=== PATIENT | male | born 1955 | race Caucasian/White ===

== ENCOUNTER 2025-01-18 19:45 | Emergency (ER) | payer MEDICARE, SELFPAY ==
--- NOTE | 2025-01-18 19:48 | ED_ITS ---
<Statement entered by Alisia Mcintyre DO - 01/18/25 23:38> I was consulted by the DE, and we discussed the complexity of the problems being addressed. I approved the treatment and management plan for this patient's care in the emergency department, thus performing a substantive portion of the medical decision making. Alisia Mcintyre DO Discharge Plan Disposition Chief Complaint: Extremity Injury, Upper Prescriptions Prescriptions: No Action hydroxyzine pamoate [Vistaril] 25 mg capsule 25 mg PO TID-QID PRN (Reason: anxiety) Qty: 90 0RF Referrals Follow up/Referrals: Bee Baum APRN [Primary Care Provider] - See instructions Activity Restrictions/Add. Instructions Additional Instructions/Restrictions: I have referred you to orthopedics. Continue taking Tylenol alternating with Motrin for symptoms along with ice compression elevation. Please wear your wrist splint. If you have continued worsening signs or symptoms follow-up with your PCP or return to the ER as needed. Clinical Impressions Clinical Impression: Injury of wrist, right Print Language Print Language: Belarusian Discharge ED Provider: Alisia Mcintyre General Adult HPI General Chief complaint: Extremity Injury, Upper Stated complaint: AO03/18@1920 RT wrist inj Time Seen by Provider: 01/18/25 19:48 History of Present Illness HPI narrative: Patient presents for evaluation of right wrist injury. Patient states he was attempting go to the bathroom and tripped on a rug slipping and falling. He did not go all the way to the ground was able to stop himself with his right arm outstretched. However he felt sharp pain in his right wrist. He came to immediately the emergency department for evaluation. He reports painful range of motion but is neurovascular intact distally. He has no numbness no tingling. Related Data Previous Rx's ?Medication ?Instructions ?Recorded hydroxyzine pamoate 25 mg capsule 25 mg PO TID-QID PRN anxiety #90 04/13/18 (Vistaril) caps Allergies Allergy/AdvReac Type Severity Reaction Status Date / Time prednisone (PREDNISONE) Allergy Unknown I-HIVES Verified 04/13/18 10:23 tramadol (TRAMADOL) Allergy Unknown NA-NAUSEA/V Verified 04/13/18 10:23 OMITING PFSH PFSH Disclaimer: The information contained in this section may have been updated after the patient was seen, as this information can be updated by other users. Medical History (Updated 01/18/25 @ 21:44 by JAMIL Ruth) Anxiety Social History Smoking Status: Current every day smoker tobacco type: cigarettes packs per day: 1 alcohol intake: never substance use type: denies use current occupational status: retired Travel in the last 8 weeks: None Other Medical History Have you received the Flu Vaccine for this season: No ROS Obtained: Yes Systems reviewed as appropriate & no additional complaints except as documented Physical Exam General General appearance: alert and in no apparent distress Respiratory Respiratory exam: Present normal lung sounds bilaterally Cardiovascular Cardiovascular exam: Present regular rate Neurological Exam Neurological exam: Present alert and oriented X3 Medical Decision Making Medical Records Screening: Per USPSTF and CDC recommendations, given the prevalence of disease in our region, it is our hospital?s policy to screen for HIV and viral Hepatitis for all patients aged 18 and over and those with ongoing risk factors. Matt Inquiry Pt receiving controlled substance: No Vital Signs: 01/18/25 19:54 Temperature 97.9 F Temperature Source Oral Pulse Rate [Right Radial] 95 H Respiratory Rate 20 Blood Pressure [Left Arm] 139/87 Blood Pressure Mean [Left Arm] 104 02 Sat by Pulse Oximetry 98 Oxygen Delivery Method Room Air Orders (Tests/Meds): ED MEDICATIONS Discontinued Medications Generic Name Dose Route Start Last Admin Trade Name Nat PRN Reason Stop Dose Admin Acetaminophen 1,000 mg 01/18/25 19:57 01/18/25 20:00 Acetaminophen 500mg Tab PO 01/18/25 19:58 500 mg ONCE ONE Administration Ibuprofen 800 mg 01/18/25 19:57 01/18/25 20:04 Ibuprofen 400 Mg Tablet PO 01/18/25 19:58 Not Given ONCE ONE ORDERS Category Date Time Status Forearm XR right 2 views [XR forearm RT 2V] Stat Exams 01/18/25 19:56 Taken Hand XR right minimum 3 views [XR hand RT min 3V] Stat Exams 01/18/25 19:56 Taken Wrist XR right minimum 3 views [XR wrist RT min 3V] Exams 01/18/25 19:56 Taken Stat Medical Decision Narrative: In summary patient is a 69-year-old male who presents to the emergency department for evaluation of right wrist injury. Patient is hemodynamically stable upon arrival, afebrile. Physical exam is remarkable only for tenderness to palpation at the distal forearm/right wrist. There is no palpable bony deformity however he is tender to palpation over the ulnar styloid. I do not appreciate any edema or ecchymosis. He has full range of motion of his hand and fingers is neurovascularly intact distally. He has more pain with supination and pronation and flexion and extension. He has no pain at the elbow and has full range of motion of the shoulder without pain. He has no other injuries anywhere including any neck pain knee pain and has full range of motion of the 3 unaffected extremities.. Differential diagnosis includes fracture versus sprain. Initial workup will be conducted with plain film x-rays of the forearm wrist and hand of the right. Initial interventions include Tylenol and ibuprofen. Initial workup reviewed by me and my informal interpretation of his imaging shows no acute fracture prior to radiology read.. Upon repeat evaluation upon reevaluation patient still reports pain at the ulna without visible evidence of fracture on imaging. Given this I have paced the patient in a splint and referred him on to orthopedics for further evaluation and care this he may have a soft tissue or ligamentous injury. Critical Care Critical Care Time Critical Care Time: No
[2025-01-18 19:54] VITALS: BP 139/87; PULSE 95; RESP 20; TEMP 36.6; O2SAT 98; BMI 24.2
--- NOTE | 2025-01-18 19:56 | XR_ITS ---
PROCEDURE INFORMATION: Exam: XR Right Hand Exam date and time: 01/18/2025 7:55 PM Age: 69 years old Clinical indication: Injury or trauma; Fall; Other: Pain; Additional info: Slipped and fell TECHNIQUE: Imaging protocol: Radiologic exam of the right hand. Views: 3 or more views. COMPARISON: No relevant prior studies available. FINDINGS: Bones/joints: No acute fracture. Normal alignment. Soft tissues: Unremarkable. IMPRESSION: No acute findings identified
--- NOTE | 2025-01-18 19:56 | XR_ITS ---
PROCEDURE INFORMATION: Exam: XR Right Wrist Exam date and time: 01/18/2025 7:58 PM Age: 69 years old Clinical indication: Injury or trauma; Fall; Other: Pain; Additional info: Slipped and fell TECHNIQUE: Imaging protocol: Radiologic exam of the right wrist. Views: 3 or more views. COMPARISON: CR Hand R 01/18/2025 7:55 PM FINDINGS: Bones/joints: No acute fracture. Normal alignment. Soft tissues: Unremarkable. IMPRESSION: No acute findings identified.
--- NOTE | 2025-01-18 19:56 | XR_ITS ---
PROCEDURE INFORMATION: Exam: XR Right Forearm Exam date and time: 01/18/2025 8:02 PM Age: 69 years old Clinical indication: Injury or trauma; Fall; Other: Pain; Additional info: Slipped and fell TECHNIQUE: Imaging protocol: Radiologic exam of the right forearm. Views: 2 views. COMPARISON: CR XR WRIST RT MIN 3V 01/18/2025 7:58 PM FINDINGS: Bones/joints: No fracture. Normal alignment. Soft tissues: Unremarkable. IMPRESSION: No acute findings identified.
[2025-01-18] MEDS: ACETAMINOPHEN 500MG TAB 1000 MG PO (20:00)
[2025-01-18 21:58] VITALS: BP 132/78; PULSE 87; RESP 14; TEMP 36.6; O2SAT 98
== END 2025-01-18 21:59 | disposition home or self-care (01) ==
PROVIDERS: Emergency Provider Emergency Medicine; PCP Nurse Practitioner Family
DX: S69.91XA Unspecified injury of right wrist, hand and finger(s), initial encounter (principal); M25.531 Pain in right wrist; W01.0XXA Fall on same level from slipping, tripping and stumbling without subsequent striking against object, initial encounter; Y93.89 Activity, other specified; Y92.002 Bathroom of unspecified non-institutional (private) residence as the place of occurrence of the external cause
CPT/HCPCS: 73090; 73110; 73130; 99283

== ENCOUNTER 2025-05-03 13:40 | Emergency (ER) | payer MEDICARE, SELFPAY ==
[2025-05-03 13:54] VITALS: BP 168/82; PULSE 85; RESP 20; TEMP 36.2; O2SAT 99; BMI 29.0
--- OUTSIDE RECORDS SUMMARY | 2025-05-03 14:05 | XMS_ITS | Clinical Summary ---
Author Organization 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 Phone Unavailable Primary Care Provider Unavailabl e Allergies No known active allergies Medications UNKNOWN TO PATIENT A ctive Medical History Medical History Date Comments Hypertension Social History Tobacco Use Types Packs/Day Years Used Date Smoking Tobacco: Every Day Cigarettes Tobacco Cessation:Ready to Q uit: No Alcohol Use Standard Drinks/Week Comments No 0 (1 standard drink = 0.6 oz pur e alcohol) Sex and Gender Information Value Date Recorded Sex Assigned at Not on file Legal Sex Male 4:34 AM EDT Gender Identity Not on file Sexual Orientation Not on file Obstetrics History Last Filed Vital Signs Vital Sign Reading Time Taken Comments Blood Pressure 130/78 02/03/2013 12:33 PM EDT Pulse 71 02/03/2013 12:33 PM EDT Temperature 36.8 C (98.2 F) 02/03/2013 11:18 AM EDT Respiratory Rate 20 02/03/2013 12:33 PM EDT Oxygen Saturation 99% 02/03/2013 11:18 AM EDT Inhaled Oxygen Concentration - - Weight 65.8 kg (145 lb) 02/03/2013 11:18 AM EDT Height 167.6 cm (5' 6 ) 02/03/2013 11:18 AM EDT Body Mass Index 23.4 02/03/2013 11:18 AM EDT Plan of Treatment Health Maintenance Due Date Last Done Comments Annual Wellness Exam 1957 Hepatitis C Screening 1972 DTaP/TDaP/Td (1 - Tdap) 1973 Cologuard 1999 Colon Cancer Screening 1999 Colonoscopy 1999 FIT 1999 Sigmoidoscopy 1999 Virtual Colonography 1999 Pneumococcal Vaccine 50+ (1 of 1 - PCV) 2004 Zoster (1 of 2) 2004 COVID-19 Vaccine (2023-2 5 season) 2024 Influenza Vaccine (Season Ended) 2025 Hepatitis B Vaccine Aged Out No longe r eligible based on patient's age to complete this topic Meningococcal B Vaccine Aged Out No l onger eligible based on patient's age to complete this topic
--- OUTSIDE RECORDS SUMMARY | 2025-05-03 14:06 | XMS_ITS | Data Portability ---
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 Leone is a 68 y/o male who presents in clinic with right knee pain secondary to a medial meniscus tear. [email or web address] Not available 06/25/2023 13:17:20 Plan of Treatment Reminders Order Date Submit Date Provider Last Modified By Organization Details Last Modified Time Details Appointments None recorded. Lab None recorded. Referral physical therapist referral 2022 023 [email or web address] Not available 12:19:04 Procedures None recorded. Surgeries None recorded. Imaging XR, knee, 4 or more view 2022 023 [email or web address] [facility] [address] [facility] [facility] [address], [place], [address], 16:25:24 Medication Orders None recorded. Patient TargetsNo targets recorded. Patient Instructions Encounter Date Encounter Id Patient Instructions Last Modified By Organization Details Last Modified Time 05/16/2023 [id number] learning about healthy weight [email or web address] Not available 05/16/2023 15:12:40 Patient appears to be doing relatively well at this time. I will release him to full duty work without restriction beyond that he be allowed to use his knee brace throughout work. We will see how he does with this over the next month. He will follow-up in 1 month with repeat evaluation at which point I would likely anticipate making him maximum medical improvement. [email or web address] Not available 05/16/2023 12:49:45 06/18/2023 [id number] learning about healthy weight [email or web address] Not available 06/18/2023 17:55:20 Patient has righ t knee medial meniscus tear. This is still symptomatic despite extensive nonoperative treatment over the last 6 months. I have recommended referral to Dr. Weiner for consideration of arthroscopic surgery. He will continue off work until this evaluation. This will be a transfer of care. [email or web address] Not available 06/18/2023 17:11:38 06/25/2023 [id number] learning about healthy weight [email or web address] Not available 06/25/2023 16:25:24 Reason for Referral Physical Therapist Referral for Tear of lateral meniscus of knee Referring Physician: Harsh Weiner, Orthopedics, Encounter Date: 06/25/2023 Results Created Date Observation Date Name Description Value Unit Range Abnormal Flag Note LastModifiedBy Organization Detail LastModifiedTime 04/03/20 XR, knee, 4 or more view No observ ation record ed. [email or web address] [facility] [address] [address] [facility] [address], [place], [address], 04/03/2023 14:22:58 04/11/2002/06/2023 MRI, knee, w/o contr ast No observ ation record ed. [id number] Not Available 04/18/2023 03:49:05 06/25/20 XR, knee, 4 or more view No observ ation record ed. [email or web address] [facility] [address] [facility] [address], [place], [address], 06/25/2023 10:44:01 Result Notes None recorded. Problems Name Problem SNOMED Code Status Onset Date Resolution Date Notes Provider Name and Address Organization Details Recorded Time Pain of right knee joint 818423862504842 Active 2022 Juana olmstead [facility] 3 08:31:39 Tear of medial meniscus of knee 635813899 Active 2022 Juana olmstead [facility] 3 08:19:57 Tear of medial meniscus of knee 098868734 Active 2022 Flakita Mota null, [facility] 3 16:53:54 Problem Notes None recorded. Procedures Surgical History Date Name Laterality Status Provider Name and Address Organization Details Recorded Time 3 Injection Knee Joint Kenalog 40 mg Right completed Flakita Chavarria [facility] 06/25/2023 11:58:53 3 DME Jatinder Bartholomew completed Chelsey Valderrama [facility] 05/01/2023 09:54:39 Imaging Results None recorded. Procedure Notes None recorded. Medical Equipment None Reported. Allergies No known drug allergies Medications Name Sig Start Date Stop Date Status Note LastModified by Organization Details LastModified Time meloxicam 15 mg tablet TAKE 1 TABLET BY MOUTH EVERY DAY WITH MEALS active Not Available Not Available No t Available meloxicam 7.5 mg tablet TAKE 1 TABLET BY MOUTH EVERY DAY WITH MEALS active Not Available Not Available No t Available lisinopril 5 mg tablet TAKE 1 TABLET BY MOUTH EVERY DAY 12/09 completed Not Available Not Available Not Available Vitals Date Recorded Body height Body mass index (BMI) Body weight Provider Name and Address Organization Details Last Updated DateTime 04/11/2023 167.64 cm 27.1 kg/m2 93670.52 g JAMIL CALLES [address] [facility] [address], [place], [address], [facility] 04/11/2023 14:08:59 Date Recorded Body height Body mass index (BMI) Body weight Provider Name and Address Organization Details Last Updated DateTime 05/16/2023 167.64 cm 27.1 kg/m2 03590.52 g Antonia Carmen [place] [employer] [employer] [facility] 05/16/2023 08:08:26 Date Recorded Body height Body mass index (BMI) Body weight Provider Name and Address Organization Details Last Updated DateTime 06/18/2023 167.64 cm 27.1 kg/m2 85352.52 g Antonia Carmen [place] [employer] 06/18/2023 16:22:53 Date Recorded Body height Body mass index (BMI) Body weight Provider Name and Address Organization Details Last Updated DateTime 06/25/2023 167.64 cm 27.1 kg/m2 29785.52 g Flakita Chavarria [facility] 06/25/2023 11:23:23 Social History Question Answer Notes LastModified by Organizat ion Details LastModified Time Tobacco Smoking Status Current Every Day Smoker Flakita Mota null, [facility] 12/13/2022 08:18:42 How Much Tobacco Do You Chew? None Information not available 12/13/2022 What Was The Date Of Your Most Recent Tobacco Screening? 06/18/2023 Information not available 06/25/2023 Has Tobacco Cessation Counseling Been Provided? Yes Information not available 06/25/2023 On What Date Was Tobacco Cessation Counseling Provided? 04/03/2023 Information not available 06/25/2023 Sex: Unknown Functional Status Question Answer Note LastModified by [email or web address] Details LastModified Time Do you use any illicit or recreational drugs? No Information not available 12/13/2022 What is your level of alcohol consumption? None Information not available 12/13/2022 Do you or have you ever used smokeless tobacco? 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 Family History Nothing Reported. Medical History Condition Response Hypertension Y Depression N Cerebrovascular Accident Y Past Encounters Encounter ID Performer Location Encounter Start Date Encounter Closed Date Diagnosis/Indication Diagnosis SNOMED-CT Code Diagnosis ICD10 Code Diagnosis Note [id number] Yossi Yang MD [address] [address] 12/13/2022 08:11:52 12/13/2022 09:39:11 Pain in right knee 7894114599 57054 M25.331 [id number] Yossi Yang MD [address] [address] 01/29/2023 14:21:47 01/29/2023 15:54:05 Pain in right knee 9523258036 00987 M25.561 Increased body mass index 83191964 E66.3 Patient was educated about healthy weight Instabilit y of joint of right knee 5059626036 748075 M25.117 [id number] Yossi Yang MD [facility] [address] [facility] [place] [address] 02/14/2023 13:13:21 02/14/2023 13:37:43 Osteoarthritis of right knee joint 0971388612 66348 M17.11 Tear of me dial meniscus of knee 683161885 S83.241A Increased body mass index 74704629 E66.3 Patient was educated about healthy weight [id number] Benito Colorado DO [facility] [address] [facility] [address] [place] [address] 04/03/2023 13:04:48 04/03/2023 14:12:25 Pain in right knee 4749563879 13069 M25.561 Tear of me dial meniscus of knee 261064623 S83.241A Clinical and radiograph ic findings discussed at length with the patient. All questions were answered. We discussed home conservati ve treatments including healthy diet, weight management , regular exercise, ice, and rest. We also discussed conservati ve treatments including NSAIDs, injections , and medically- directed physical therapy. We will continue treatment with conservati ve management of symptoms including home exercises, rest, and pain medication s as discussed today. Patient will follow up for diagnostic review of the right knee. I have advised patient to follow up with CD and report. [id number] Yossi Yang MD [facility] [address] [facility] [address] [facility] [address] [place] [address] 04/11/2023 14:01:17 04/11/2023 15:25:52 Tear of medial meniscus of knee 402391486 S83.241D Patient presents for follow up evaluation under WC of right knee pain following work related injury approximat génesis 6 months ago. Patient was cleared to return to full duty on 02/14/23. Physical exam remains unchanged. Patient is MMI and has no restrictio ns. Re-ordered jatinder avila hinged brace due to condition. He shall continue Meloxicam to decrease inflammati on. Patient will follow up as needed. [id number] Yossi Yang MD [place] [address] [place] [address] 05/01/2023 09:16:28 05/01/2023 09:48:43 Tear of medial meniscus of knee 020177774 S83.241D Patient presents for follow up evaluation under WC of right knee pain following work related injury kira capps 6 months ago. Patient was cleared to return to full duty on 02/14/23. Physical exam remains unchanged. Patient is MMI and has no restrictio ns. Re-ordered jatinder avila hinged brace due to condition. He shall continue Meloxicam to decrease inflammati on. Patient will follow up as needed. [id number] Yossi Yang MD [address] [address] 05/16/2023 07:47:44 05/16/2023 08:27:57 Increased body mass index 88952060 E66.3 Patient was educated about healthy weight Tear of me dial meniscus of knee 435253451 S83.241A [id number] Yossi Yang MD [address] [address] 06/18/2023 15:23:19 06/18/2023 16:55:42 Increased body mass index 75485780 E66.3 Patient was educated about healthy weight Tear of me dial meniscus of knee 784689592 S83.241A [id number] Harsh Weiner MD [address] [address] 06/25/2023 10:35:40 06/25/2023 12:08:52 Pain in right knee 7433601629 82244 M25.561 4 views of the knee obtained today demonstrat e no significan t osteoarthr itis, loose bodies or fractures or dislocatio n there is no evidence of previous surgery. Tear of la teral meniscus of knee 721069933 S83.281A Clinical and radiograph ic and diagnostic findings discussed at length with the patient. All questions were answered. We will initiate treatment with conservati ve management of symptoms. I have advised the patient to continue use of ice and NSAIDS (if tolerated) to reduce pain and swelling as needed and continue with activity modificati on. I haveadmini stereda cortisone injection into the right knee via manual palpation. I have discussed possible surgery if the cortisone injection gives him relief. I have orderedphy sical therapyto strengthen and improve ROM. Patient will follow up withDr. Garciafor an evaluation of his lumbar spine. Patient will follow up with in 4 weeks. Increased body mass index 77403798 E66.3 Patient was educated about healthy weight Health Concerns Section Related Observation LastModified by Organization Detai ls LastModified Time None Recorded Concern Status LastModified by Organization Details LastModified Time None Recorded Advance Directives Directive None Recorded Payers Insurance Date Sequence Insurance Name Policy Number Policy Painter Covered Member ID Painter Member ID Guarantor Name 12/05/2022 TRACY ELIZABETH [id number] Jim Leone Notes Date Note Type Note Provider Name and Address Organization Details Recorded Time 3 text/html Patient presents for follow up evaluation under WC of right knee pain following work related injury approximately 6 months ago. Patient continues to have intermittent pain located in the medial right knee. Patients primary concern is that he fell yesterday while walking 2 miles to [employer]. Denies any trauma or injury. He feels more stable when utilizing the hinged knee brace. Additional treatments attempted include Meloxicam, Tylenol, icing, physical therapy, and bracing. JAMIL CALLES [address] [facility],[address], [place], [address], [facility] 04/11/2023 14:50:33 3 text/html Patient presents for follow up evaluation under WC of right knee pain, following work related injury approximately 6 1/2 months ago. Patient was given a brace at his last appointment and he wants to see if this is the correct brace and if his knee is healing the correct way. He also wants to know if he can return back to work. Patient states he is doing very well with his knee brace. The knee is not giving way. However when he does not use the knee brace he feels that the knee is somewhat unstable. Yossi Yang MD [address] [facility],[address], [place], [address], [facility] 05/16/2023 12:49:57 3 text/html Patient presents for re-evaluation of his right knee pain, following work related injury approximately 6 1/2 months ago. Patient states he continues to have pain and feelings of instability to his knee. States mild associated mechanical symptoms. The hinged knee brace does not work as well as his smaller brace. He uses this daily. Feels he is not able to work in his current condition. Patient states He is taking Meloxicam as prescribed with minimal relief. Yossi Yang MD [address] [facility],[address], [place], [address], [facility] 06/18/2023 17:11:48 3 text/html Patient is a 68y/o male who presents for 8 months of right knee pain which has recently worsened. The pain began following an injury. The injury is described as he missed a step and slipped on his right knee on 11/12/22 and went to an urgent care/ hospital on [address]. The pain localizes to the medial & lateral knee.The pain is worsened with WBThe patient also admits trouble with ADL'sPatient also describes locking or catching in the knee.Pain is rated as a 10 out of 10 Patient has tried rest ice and anti-inflammatories (Meloxicam) with benefit They deny history injections, physical therapy or surgery. Patient denies having prior imaging done. Diabetic NHeart diseaseNAutoimmune diseaseNTobacco use Y Harsh Weiner MD [address] [facility],[address], [place], [address], [facility] 06/25/2023 13:17:37
--- NOTE | 2025-05-03 14:16 | ED_ITS ---
<Statement entered by Bina Hein MD - 05/04/25 21:33> I was consulted by the DE, and we discussed the complexity of the problems being addressed. I approved the treatment and management plan for this patient's care in the emergency department, thus performing a substantive portion of the medical decision making. Bina Hein MD, ELIDA, FACEP Discharge Plan Disposition Patient Disposition: Left Against Medical Advice Condition: Fair Prescriptions Prescriptions: No Action hydroxyzine pamoate [Vistaril] 25 mg capsule 25 mg PO TID-QID PRN (Reason: anxiety) Qty: 90 0RF Referrals Follow up/Referrals: Provider,Referral, [Referring, Medical] - See instructions Clinical Impressions Clinical Impression: Acute pain of left shoulder, Confusion Instructions Patient Instructions: DI for Shoulder Pain Print Language Print Language: Nigerien Discharge ED Provider: Bina Hein General Adult HPI General Chief complaint: PAIN Stated complaint: L Shoulder Pain Time Seen by Provider: 05/03/25 14:05 Mode of Arrival: Ambulatory Source of Information: Patient Description of Symptoms (Recalled from ER Triage Doc. by RN): pt presents to ED c/o left shoulder pain x 1 week. pt states the pain is worse with movement. denies any known injury. History of Present Illness HPI narrative: 69-year-old male presents to the ED complaining of left shoulder pain for the past week. Patient states he was walking to [facility] and his shoulder just started hurting. He has not fallen and has had no trauma. Related Data Previous Rx's ?Medication ?Instructions ?Recorded hydroxyzine pamoate 25 mg capsule 25 mg PO TID-QID PRN anxiety #90 04/13/18 (Vistaril) caps Allergies Allergy/AdvReac Type Severity Reaction Status Date / Time prednisone (PREDNISONE) Allergy Unknown I-HIVES Verified 04/13/18 10:23 tramadol (TRAMADOL) Allergy Unknown NA-NAUSEA/V Verified 04/13/18 10:23 OMITING PFSH PFSH Disclaimer: The information contained in this section may have been updated after the patient was seen, as this information can be updated by other users. Medical History (Updated 05/03/25 @ 16:40 by Marcella Kumar (ED), [employer] TABLE WORK[employer]) Anxiety Social History (Updated 01/18/25 @ 21:44 by JAMIL Ruth) Smoking Status: Smoker, status unknown tobacco type: cigarettes packs per day: 1 alcohol intake: never substance use type: denies use current occupational status: retired Travel in the last 8 weeks?: None Have you lived/traveled outside US in past 30 days?: No Contact w/someone who lives/traveled outside US past 30 days?: No Exposure to someone with infectious disease in past 14 days?: No Do you have a fever (greater than 100.4 F or 38 C)?: No Have you tested positive for COVID-19?: No Exposed to someone with COVID-19 in past 14 days?: No Do you have a sore throat?: No Do you have a cough?: No Do you have any weakness?: No Do you have any diarrhea?: No Are you experiencing any unusual bleeding?: No Do you have any muscle aches/pain?: Yes Do you have any abdominal pain?: No Are you experiencing loss of taste or smell?: No Other Medical History Have you received the Flu Vaccine for this season: No Have you received the Pneumonia Vaccine: No ROS Obtained: Yes Systems reviewed as appropriate & no additional complaints except as documented Constitutional Constitutional: Reports as per HPI Physical Exam General General appearance: alert Comment: Very emotional Head Head exam: normocephalic Eye Eye exam: Present PERRL and EOMI ENT ENT exam: Present normal oropharynx and mucous membranes moist Neck Neck exam: Present full ROM and trachea midline Respiratory Respiratory exam: Present normal lung sounds bilaterally Cardiovascular Cardiovascular exam: Present regular rate, normal rhythm, normal heart sounds, +S1 and +S2 Extremities Exam Extremities exam: Present tenderness (Left shoulder pain) and normal capillary refill Neurological Exam Neurological exam: Present alert and oriented X3 Psychiatric Psychiatric exam: Present anxious Skin Skin exam: Present warm, dry and intact Medical Decision Making Medical Records Screening: Per USPSTF and CDC recommendations, given the prevalence of disease in our region, it is our hospital?s policy to screen for HIV and viral Hepatitis for all patients aged 18 and over and those with ongoing risk factors. Matt Inquiry Pt receiving controlled substance: No Matt was queried for this patient: No Vital Signs: 05/03/25 13:54 05/03/25 15:31 05/03/25 16:44 Temperature 97.2 F L 98.7 F Temperature Source Oral Oral Pulse Rate 69 78 Pulse Rate [Right Radial] 85 Respiratory Rate 20 16 Blood Pressure 154/96 H 154/90 H Blood Pressure [Right Arm] 168/82 H Blood Pressure Mean [Right Arm] 110 Blood Pressure Source Automatic Cuff Blood Pressure Source [Right Arm] Automatic Cuff Blood Pressure Position [Right Arm] Sitting 02 Sat by Pulse Oximetry 99 96 Oxygen Delivery Method Room Air Room Air Lab Data Lab Results 05/03/25 15:15: WBC 10.5, RBC 5.31, Hgb 15.9, Hct 47.2, MCV 88.9, MCH 29.9, MCHC 33.7, RDW 13.7, Plt Count 341, MPV 10.9 H, Neut % (Auto) 70.6, Lymph % (Auto) 16.7, [place] % (Auto) 7.4, Eos % (Auto) 4.6, Baso % (Auto) 0.3, Neut # (Auto) 7.4, Lymph # (Auto) 1.8, [place] # (Auto) 0.8, Eos # (Auto) 0.5 H, Baso # (Auto) 0.0, Sodium 139, Potassium 4.7, Chloride 101, Carbon Dioxide 28, Anion Gap 14.7, BUN 24 H, Creatinine 1.40 H, Estimated Creat Clear 57, Estimated GFR 50 L, Est GFR ( Amer) 61, Glucose 105 H, Calcium 9.5, Magnesium 2.2, Total Bilirubin 0.9, AST 29, ALT 23, Alkaline Phosphatase 53, Troponin I < 0.01, Total Protein 8.0, Albumin 4.7, Globulin 3.3 H, Albumin/Globulin Ratio 1.4, Lipase 71 05/03/25 15:15 05/03/25 15:15 Orders (Tests/Meds): ED MEDICATIONS Discontinued Medications Generic Name Dose Route Start Last Admin Trade Name Freq PRN Reason Stop Dose Admin Sodium Chloride 1,000 mls @ 999 mls/hr 05/03/25 15:09 05/03/25 15:36 Sod Chlor 0.9% 1000ml Bag IV 05/03/25 16:09 999 mls/hr .Q1H1M ONE Administration Iopamidol 80 ml 05/03/25 15:55 05/03/25 15:58 Iopamidol-370 (76%);100ml Bottle IV 05/03/25 15:56 80 ml ONCE ONE Administration Ketorolac Tromethamine 30 mg 05/03/25 14:20 05/03/25 14:34 Ketorolac 30mg/Ml Vial IM 05/03/25 14:21 30 mg ONCE ONE Administration Orphenadrine Citrate 60 mg 05/03/25 14:20 05/03/25 14:34 Orphenadrine Citrate 60mg/2ml Vial IM 05/03/25 14:21 60 mg ONCE ONE Administration Sodium Chloride 40 ml 05/03/25 15:55 05/03/25 15:57 0.9 % Sodium Chloride 50 Ml Vial IV 05/03/25 15:56 40 ml ONCE ONE Administration Sodium Chloride 10 ml 05/03/25 15:55 05/03/25 15:58 Sodium Chloride 0.9% 10ml Syr (Rad Only) IV 05/03/25 15:56 10 ml ONCE ONE Administration ORDERS Category Date Time Status CT angio head Stat Cat Scan 05/03/25 15:[address] angio neck Stat Cat Scan 05/03/25 15:[address] head/brain wo con Stat Cat Scan 05/03/25 15:08 Completed Shoulder XR left minimum 2 views [XR shoulder LT min 2V Exams 05/03/25 14:19 Completed ] Stat CBC [Complete Blood Count Auto Diff] Stat Lab 05/03/25 15:15 Completed Comprehensive Metabolic Panel Stat Lab 05/03/25 15:15 Completed Lipase Stat Lab 05/03/25 15:15 Completed Magnesium Stat Lab 05/03/25 15:15 Completed Trop I [Troponin I] Stat Lab 05/03/25 15:15 Completed Medical Decision Narrative: patient is a 69-year-old male presenting to the emergency department for evaluation of left shoulder pain initially. He then had a family member come to us and tell us that he went over to his neighbor's house this morning and was confused and talking to the neighbor with no pants on. Patient walked to [facility] and was unable to make it back home. He called his family member telling her to pick him up and when she arrived he was unable to get to the car because he was weak. She is concerned that he may have had another stroke. Patient is hemodynamically stable and nontoxic-appearing upon arrival, afebrile. Differential diagnosis includes left shoulder injury, confusion, heat exhaustion, CVA, among others. Workup will be conducted with hematologic labs, specific imaging. Initial inventions include crystalloid bolus, analgesics. Initial workup reviewed by me hematologic labs are remarkable for: Elevated BUN and creatinine. Left shoulder x-ray imaging informally interpreted by me and remarkable for nothing acute. CT of head and CTA head and neck were not read at his time of AMA. Myself his nurse both tried to get him to stay and he refused. He did not want to wait on the CT and CTA results. He said he was ready to get out of here and he was not staying. He was moving his left arm without pain and had good range of motion upon discharge. He was alert and oriented x 3 and signed his AMA form. Critical Care Critical Care Time Critical Care Time: No
--- NOTE | 2025-05-03 14:19 | XR_ITS ---
FINAL REPORT CLINICAL HISTORY: LEFT SHOULDER PAIN COMPARISON: None FINDINGS: LEFT SHOULDER 3 views of the left shoulder were obtained. There is no acute fracture or dislocation. Visualized joint spaces are normally aligned. Mild hypertrophic changes noted in the acromioclavicular joint. Soft tissues are unremarkable. IMPRESSION: No acute bony abnormality. Reviewed, Interpreted and Dictated by Brennan Butler MD Transcribed by Jenniffer Patel Authenticated and [facility]
[2025-05-03] MEDS: ORPHENADRINE CITRATE 60MG/2ML VIAL 60 MG IM (14:34)
[2025-05-03] MEDS: KETOROLAC 30MG/ML VIAL 30 MG IM (14:34)
--- NOTE | 2025-05-03 15:08 | CT_ITS ---
PROCEDURE INFORMATION: Exam: CTA Neck With Contrast Exam date and time: 05/03/2025 3:54 PM Age: 69 years old Clinical indication: Other: Confusion TECHNIQUE: Imaging protocol: Computed tomographic angiography of the neck with contrast. Exam focused on the cervical segments of the vasculature. 3D rendering (Not supervised by radiologist): MIP and/or 3D reconstructed images were created by the technologist. Radiation optimization: All CT scans at this facility use at least one of these dose optimization techniques: automated exposure control; mA and/or kV adjustment per patient size (includes targeted exams where dose is matched to clinical indication); or iterative reconstruction. Contrast material: ISO 370; Contrast volume: 80 ml; Contrast route: INTRAVENOUS (IV); COMPARISON: CT HEAD/BRAIN WO CON 05/03/2025 3:52 PM FINDINGS: Right common carotid artery: Calcification of the right common carotid bifurcation without significant stenosis. Right internal carotid artery: Minor calcification of the proximal right ICA without stenosis. Right external carotid artery: No occlusion or stenosis of the origin. Left common carotid artery: Mild calcification at the left common carotid bifurcation without significant stenosis. Left internal carotid artery: No stenosis of the extracranial segment. No dissection or occlusion. Left external carotid artery: No occlusion or stenosis of the origin. Right vertebral artery: No stenosis. No dissection or occlusion. Left vertebral artery: No stenosis. No dissection or occlusion. Aorta: Aortic calcification. Salivary glands: Soft tissue nodule involving the left parotid gland measures 12 mm. Thyroid: Heterogeneous thyroid with ill-defined nodules. Soft tissues: Normal. No significant soft tissue swelling. Bones/joints: Degenerative change involving the spine. IMPRESSION: 1. No hemodynamically significant stenosis. 2. 12 mm soft tissue nodule involving the left parotid gland. Consider enlarged intraparotid lymph node, Warthin's tumor, benign mixed tumor or minor salivary gland neoplasia. 3. Additional non emergent findings as above. COMMENTS: Consistent with the [employer]'s Incidental Findings Committee white paper (J Am Monica Radiol 2015): In patients aged 35 years and older with an incidental thyroid nodule equal to or greater than 1.[address], MRI or extrathyroidal US, further evaluation with dedicated thyroid US is recommended for patients with normal life expectancy and without comorbidities. For smaller nodules without suspicious features, no further evaluation or follow up is recommended. REFERENCES: NASCET CRITERIA. The degree of stenosis in the cervical segment of the internal carotid artery is based on NASCET criteria. Normal is no stenosis. Mild is less than 50% stenosis. Moderate is 50-69% stenosis. Severe is 70% to 99% stenosis. Total occlusion is no detectable patent lumen.
--- NOTE | 2025-05-03 15:08 | CT_ITS ---
PROCEDURE INFORMATION: Exam: CTA Head With Contrast, Arteriography Exam date and time: 05/03/2025 3:54 PM Age: 69 years old Clinical indication: Other: Confusion TECHNIQUE: Imaging protocol: Computed tomographic angiography of the head with contrast. Exam focused on the arteries. 3D rendering (Not supervised by radiologist): MIP and/or 3D reconstructed images were created by the technologist. Radiation optimization: All CT scans at this facility use at least one of these dose optimization techniques: automated exposure control; mA and/or kV adjustment per patient size (includes targeted exams where dose is matched to clinical indication); or iterative reconstruction. Contrast material: ISO 370; Contrast volume: 80 ml; Contrast route: INTRAVENOUS (IV); COMPARISON: CT HEAD/BRAIN WO CON 05/03/2025 3:52 PM FINDINGS: ANTERIOR CIRCULATION: Right internal carotid artery: Mild calcification involving the right carotid siphon without significant stenosis. Right middle cerebral artery: No occlusion or significant stenosis. No aneurysm. Right anterior cerebral artery: Hypoplastic right FREDERICK A1 segment. Left internal carotid artery: Calcification involving the left carotid siphon without significant stenosis. Left middle cerebral artery: No occlusion or significant stenosis. No aneurysm. Left anterior cerebral artery: No occlusion or significant stenosis. No aneurysm. POSTERIOR CIRCULATION: Right vertebral artery: No occlusion or significant stenosis. No aneurysm. Left vertebral artery: No occlusion or significant stenosis. No aneurysm. Basilar artery: No occlusion or significant stenosis. No aneurysm. Right posterior cerebral artery: Carotid dominant right posterior cerebral artery with diminutive right LINTER SAW SHARPENER P1 segment. Left posterior cerebral artery: origin of the left posterior cerebral artery. IMPRESSION: No hemodynamically significant stenosis or large vessel occlusion.
--- NOTE | 2025-05-03 15:08 | CT_ITS ---
PROCEDURE INFORMATION: Exam: CT Head Without Contrast Exam date and time: 05/03/2025 3:52 PM Age: 69 years old Clinical indication: Other: Confusion TECHNIQUE: Imaging protocol: Computed tomography of the head without contrast. Radiation optimization: All CT scans at this facility use at least one of these dose optimization techniques: automated exposure control; mA and/or kV adjustment per patient size (includes targeted exams where dose is matched to clinical indication); or iterative reconstruction. COMPARISON: No relevant prior studies available. FINDINGS: Brain: No acute intracranial hemorrhage.. There is moderate diffuse heterogeneity of the white matter attenuation, consistent with chronic white matter ischemic changes. Moderate cerebral atrophy. Remote lacunar infarction in the right thalamus Cerebral ventricles: No ventriculomegaly. Paranasal sinuses: Visualized sinuses are unremarkable. No fluid levels. Mastoid air cells: Visualized mastoid air cells are well aerated. Bones: Unremarkable. No acute fracture. Soft tissues: Unremarkable. IMPRESSION: No acute intracranial hemorrhage..
[2025-05-03 15:22] LABS: Hematocrit 47.2 % (42.0-52.0); Hemoglobin 15.9 g/dL (14.1-18.0); Immature Granulocytes % 0.4 %; Mean Corpuscular HGB Conc 33.7 g/dL (31.8-35.4); Mean Corpuscular Hemoglobin 29.9 pg (27.0-31.2); Mean Corpuscular Volume 88.9 fl (80-94); Nucleated Red Blood Cells % 0 %; Platelet Count 341 K/mm3 (142-424); Red Blood Count 5.31 M/mm3 (4.60-6.20); Red Cell Distribution Width-SD 44.8 fL; White Blood Count 10.5 K/mm3 (4.8-10.8)
[2025-05-03 15:31] VITALS: BP 154/96; PULSE 69; O2SAT 96
[2025-05-03 15:34] LABS: Sodium 139 mmol/L (136-145)
[2025-05-03 15:35] LABS: Potassium 4.7 mmoL/L (3.5-5.1)
[2025-05-03] MEDS: 0.9 % SODIUM CHLORIDE 1000ML 1,000 ML 999 ML IV (15:36)
[2025-05-03 15:37] LABS: Alanine Aminotransferase 23 U/L (12-78); Alkaline Phosphatase 53 U/L (38-126); Aspartate Amino Transferase 29 U/L (17-59); Bilirubin,Total 0.9 mg/dl (0.2-1.3); Blood Urea Nitrogen 24 mg/dl (9-20); Carbon Dioxide 28 mmol/L (22.0-30.0); Creatinine Clearance Estimated 57 mL/min (50-200); Creatinine,Serum 1.40 mg/dl (0.66-1.25); Estimated Glomerular Filt Rate 50 ml/min (>60); GFR (African American) 61 ML/MIN (>60); Total Protein,Serum 8.0 g/dl (6.3-8.2)
[2025-05-03 15:38] LABS: Calcium 9.5 mg/dl (8.4-10.2); Glucose 105 mg/dl (74-100); Lipase 71 U/L (23-300); Magnesium 2.2 mg/dl (1.6-2.3)
[2025-05-03 15:55] LABS: Troponin I < 0.01 ng/ml (0.00-0.034)
[2025-05-03] MEDS: 0.9 % SODIUM CHLORIDE 50 ML VIAL 40 ML IV (15:57)
[2025-05-03] MEDS: IOPAMIDOL-370 (76%);100ML BOTTLE 80 ML IV (15:58)
[2025-05-03] MEDS: SODIUM CHLORIDE 0.9% 10ML SYR (RAD ONLY) 10 ML IV (15:58)
[2025-05-03 16:09] LABS: Anion Gap 14.7 mEq/L (5-15); Chloride 101 mmol/L (98-107)
[2025-05-03 16:44] VITALS: BP 154/90; PULSE 78; RESP 16; TEMP 37.1; O2SAT 97
[2025-05-03 18:22] LABS: Albumin Level 4.7 g/dl (3.5-5.0); Albumin/Globulin Ratio 1.4 (1.1-1.8); Globulin 3.3 g/dL (1.3-3.2)
== END 2025-05-03 16:48 | disposition left against medical advice (07) ==
PROVIDERS: Nurse Practitioner; Emergency Provider Student in an Organized Health Care Education/Training Program; PCP Nurse Practitioner Family
DX: M25.512 Pain in left shoulder (principal); R41.0 Disorientation, unspecified; F17.210 Nicotine dependence, cigarettes, uncomplicated; Z86.73 Personal history of transient ischemic attack (TIA), and cerebral infarction without residual deficits
CPT/HCPCS: 70450; 70496; 70498; 73030; 80053; 83690; 83735; 84484; 85025; 96360; 96372; 99285; J1885; J2360; J7030; Q9967

== ENCOUNTER 2025-05-26 21:31 | Emergency (ER) | payer SELFPAY ==
[2025-05-26 21:32] VITALS: BP 176/102; PULSE 89; RESP 18; TEMP 36.6; O2SAT 100; BMI 28.2
--- OUTSIDE RECORDS SUMMARY | 2025-05-26 21:40 | XMS_ITS | Clinical Summary ---
Author Organization [facility] Address [facility] [address] [facility] [address] [place] [id number] Phone Care Team Providers Care Explosives Engineer Name Role Phone Unavailable Primary Care Provider [...] Vaccine (2023-2 5 season) 2024 Influenza Vaccine (#1) 2025 Hepatitis B Vaccine Aged Out No longe r eligible based on patient's age to complete this topic Meningococcal B Vaccine Aged Out No l onger eligible based on patient's age to complete this topic
[2025-05-26 22:01] VITALS: BP 170/91; PULSE 82; RESP 16; O2SAT 98
--- NOTE | 2025-05-26 22:10 | XR_ITS ---
PROCEDURE INFORMATION: Exam: XR Left Shoulder Exam date and time: 05/26/2025 10:06 PM Age: 70 years old Clinical indication: Pain; Shoulder; Left; Additional info: Shoulder pain TECHNIQUE: Imaging protocol: Radiologic exam of the left shoulder. Views: 2 or more views. COMPARISON: CR XR SHOULDER LT MIN 2V 05/03/2025 2:37 PM FINDINGS: Bones/joints: Normal. Soft tissues: Normal. IMPRESSION: No acute findings.
[2025-05-26] MEDS: ACETAMINOPHEN 500MG TAB 1000 MG PO (22:25)
[2025-05-26] MEDS: OXYCODONE 5MG IMMEDIATE RELEASE TABLET 5 MG PO (22:25)
[2025-05-26] MEDS: ONDANSETRON 4MG ODT 4 MG SL (22:25)
[2025-05-26] MEDS: METHOCARBAMOL 500MG TABLET 1500 MG PO (22:26)
[2025-05-26] MEDS: LIDOCAINE 5% TRANSDERMAL PATCH 1 EACH TD (22:26)
--- NOTE | 2025-05-26 23:11 | ED_ITS ---
Discharge Plan Disposition Patient Disposition: Home, Self-Care Condition: Good Prescriptions Prescriptions: No Action hydroxyzine pamoate [Vistaril] 25 mg capsule 25 mg PO TID-QID PRN (Reason: anxiety) Qty: 90 0RF meloxicam [Mobic] 7.5 mg Tablet 7.5 mg PO DAILY lisinopril 30 mg tablet 30 mg PO DAILY Patient Comments: TAKE 1 TABLET BY MOUTH ONCE DAILY hydrochlorothiazide 12.5 mg tablet 12.5 mg PO DAILY Patient Comments: TAKE 1 TABLET BY MOUTH ONCE DAILY Referrals Follow up/Referrals: Boy Elias DO [Staff Physician, Orthopedics] - See instructions Activity Restrictions/Add. Instructions Additional Instructions/Restrictions: Please call Dr. Elias in the morning to schedule an appointment to be evaluated by orthopedics. You may take ibuprofen and Tylenol at home for pain. If you experience any new or worsening symptoms please return to the emergency department for further evaluation. Clinical Impressions Clinical Impression: Acute pain of left shoulder Print Language Print Language: Com[place] Discharge ED Provider: Carmine Delgadillo Adult HPI General Chief complaint: Extremity Injury, Upper Stated complaint: left shoulder pain Time Seen by Provider: 05/26/25 21:36 Mode of Arrival: Ambulatory Source of Information: Patient Description of Symptoms (Recalled from ER Triage Doc. by RN): Left shoulder pain. Was dx about a week ago with bursitis. Rx mobic 7.5 without relief of pain. History of Present Illness HPI narrative: This is a 70-year-old male patient, with past medical history of tobacco abuse, who is presenting to the emergency department today for evaluation of left shoulder pain. Based on prior chart review the patient was seen here during the beginning of the month for very similar symptoms and had an x-ray that showed osteoarthritis and he was referred to orthopedics at that time. He has not followed up with orthopedics and has been managing his pain conservatively at home. He states that today he was out weed eating all day long and following weed eating he has had significant recurrence of pain in his left shoulder. He does have pain with maximal abduction of the left shoulder but has painless flexion and extension of the shoulder. This pain does not radiate. He denies chest pain or shortness of breath. He is not having weakness or sensory changes in the left upper extremity. Related Data Home Medications ?Medication ?Instructions ?Recorded ?Confirmed hydrochlorothiazide 12.5 mg tablet 12.5 mg PO DAILY 05/26/25 lisinopril 30 mg tablet 30 mg PO DAILY 05/26/2505/04 meloxicam 7.5 mg tablet 7.5 mg PO DAILY 05/26/25 Previous Rx's ?Medication ?Instructions ?Recorded hydroxyzine pamoate 25 mg capsule 25 mg PO TID-QID PRN anxiety #90 04/13/18 (Vistaril) caps Allergies Allergy/AdvReac Type Severity Reaction Status Date / Time prednisone (PREDNISONE) Allergy Unknown I-HIVES Verified 04/13/18 10:23 tramadol (TRAMADOL) Allergy Unknown NA-NAUSEA/V Verified 04/13/18 10:23 [facility] Disclaimer: The information contained in this section may have been updated after the patient was seen, as this information can be updated by other users. Medical History (Updated 05/26/25 @ 23:38 by Carmine Delgadillo DO) Anxiety Social History (Updated 01/18/25 @ 21:44 by JAMIL Ruth) Smoking Status: Former smoker tobacco type: cigarettes packs per day: 1 alcohol intake: never substance use type: denies use current occupational status: retired Travel in the last 8 weeks?: None Have you lived/traveled outside [place] in past 30 days?: No Contact w/someone who lives/traveled outside [place] past 30 days?: No Exposure to someone with infectious disease in past 14 days?: No Do you have a fever (greater than 100.4 F or 38 C)?: No Have you tested positive for COVID-19?: No Exposed to someone with COVID-19 in past 14 days?: No Do you have a sore throat?: No Do you have a cough?: No Do you have any weakness?: No Do you have any diarrhea?: No Are you experiencing any unusual bleeding?: No Do you have any muscle aches/pain?: No Do you have any abdominal pain?: No Are you experiencing loss of taste or smell?: No Other Medical History Have you received the Flu Vaccine for this season: No Have you received the Pneumonia Vaccine: No ROS Obtained: Yes Systems reviewed as appropriate & no additional complaints except as documented Physical Exam General General appearance: alert and in no apparent distress Head Head exam: atraumatic and normocephalic Eye Eye exam: Present PERRL and EOMI ENT ENT exam: Present normal oropharynx and mucous membranes moist Neck Neck exam: Present full ROM and trachea midline Respiratory Respiratory exam: Present normal lung sounds bilaterally; Absent respiratory distress Cardiovascular Cardiovascular exam: Present regular rate and normal rhythm Abdominal Exam Abdominal exam: Present soft; Absent tenderness Extremities Exam Extremities exam: Present normal inspection; Absent tenderness Back Exam Back exam: Absent vertebral tenderness Neurological Exam Neurological exam: Present alert and oriented X3 Skin Skin exam: Present warm and dry Medical Decision Making Medical Records Screening: Per USPSTF and CDC recommendations, given the prevalence of disease in our region, it is our hospital?s policy to screen for HIV and viral Hepatitis for all patients aged 18 and over and those with ongoing risk factors. Matt Inquiry Pt receiving controlled substance: No Matt was queried for this patient: No Vital Signs: 05/26/25 21:32 05/26/25 22:01 Temperature 97.8 F Temperature Source Oral Pulse Rate 82 Pulse Rate [Radial] 89 Respiratory Rate 18 16 Blood Pressure 170/91 H Blood Pressure [Right Arm] 176/102 H Blood Pressure Mean 125 Blood Pressure Mean [Right Arm] 126 02 Sat by Pulse Oximetry 100 98 Oxygen Delivery Method Room Air Orders (Tests/Meds): ED MEDICATIONS Discontinued Medications Generic Name Dose Route Start Last Admin Trade Name Nat PRN Reason Stop Dose Admin Acetaminophen 1,000 mg 05/26/25 22:11 05/26/25 22:25 Acetaminophen 500mg Tab PO 05/26/25 22:12 1,000 mg ONCE ONE Administration Lidocaine 1 each 05/26/25 22:11 05/26/25 22:26 Lidocaine 5% Transdermal Patch TD 05/26/25 22:12 1 each ONCE ONE Administration Methocarbamol 1,500 mg 05/26/25 22:12 05/26/25 22:26 Methocarbamol 500mg Tablet PO 05/26/25 22:13 1,500 mg ONCE ONE Administration Ondansetron HCl 4 mg 05/26/25 22:12 05/26/25 22:25 Ondansetron 4mg Odt SL 05/26/25 22:13 4 mg ONCE ONE Administration Oxycodone HCl 5 mg 05/26/25 22:11 05/26/25 22:25 Oxycodone 5mg Immediate Release Tablet PO 05/26/25 22:12 5 mg ONCE ONE Administration ORDERS Category Date Time Status Shoulder XR left minimum 2 views [XR shoulder LT min 2V Exams 05/26/25 22:10 Completed ] Stat Medical Decision Narrative: In summary, this is a 70-year-old male patient who is presenting to the emergency department today for evaluation of left shoulder pain after weed eating all day long. Patient's comorbidities include osteoarthritis as well as tobacco abuse. On initial evaluation of the patient they were resting comfortably in no acute distress and nontoxic in appearance. They are hemodynamically stable, saturating well room air, and are neurologically intact. On physical examination the shoulder is nontender to palpation. There is no erythema overlying the joint. He has full range of motion passively and actively of the joint but he does experience some pain with maximal abduction of the left shoulder. He has 5 out of 5 strength in his left upper extremity with normal sensation in all terminal nerve distributions. Differential diagnosis includes acromioclavicular osteoarthritis, glenohumeral osteoarthritis, rotator cuff tear, among others. Workup was initiated with an x-ray of the left shoulder. X-rays were interpreted by me demonstrate no acute fracture or dislocation. We treated the patient's pain in the emergency department with 5 mg of oxycodone, 1500 mg of Robaxin, 1 g of Tylenol, and 4 mg of Zofran. On repeat evaluation of the patient he was resting comfortably and is in no acute distress. His pain has significantly improved. He is requesting to be discharged home. I have recommended follow-up with orthopedics and given that this is the second emergency department visit he has necessitated for this pain. At this time all questions have been answered and all parties are agreeable with the decision to discharge home Critical Care Critical Care Time Critical Care Time: No
[2025-05-26 23:42] VITALS: BP 170/91; PULSE 86; RESP 16; TEMP 36.6; O2SAT 98
== END 2025-05-26 23:46 | disposition home or self-care (01) ==
PROVIDERS: Emergency Provider Student in an Organized Health Care Education/Training Program; PCP Nurse Practitioner Family
DX: M25.512 Pain in left shoulder (principal)
CPT/HCPCS: 73030; 99283; Q0162